=== PATIENT | male | born 1965 | race Caucasian/White ===

== ENCOUNTER 2018-12-19 13:34 | Emergency (ER) | payer OTHER ==
[2018-12-19 13:39] VITALS: BP 139/71; PULSE 60; TEMP 97.9; BMI 28.7
[2018-12-19] MEDS ORDERED: SODIUM CHLORIDE 1,000 ML IV STA (13:49)
[2018-12-19] MEDS ORDERED: morphine CARPU-JECT 4 MG/1 ML DISP.SYRIN IVPUSH ONE (13:49)
[2018-12-19] MEDS ORDERED: morphine SULFATE 4 MG/ML VIAL ONE (13:51)
--- NOTE | 2018-12-19 13:53 | PDOC ---
Attending Attestation - Resident Resident Name: Tima Perez - ED Attending Attestation I have performed the following: I have examined & evaluated the patient, The case was reviewed & discussed with the resident, I agree w/resident's findings & plan, Exceptions are as noted - HPI HPI: 12/19/18 13:50 53y M hx of brendan maria, chronic back pain was brought to the ED by PMD for evaluation of with R sided back pain. Pt states he was in his usual state of haelth this weekend. He went to his routine chiropractic appointment, approx 10 min later when he was driving home he noticed sudden onset of R flank pain that radiated down to the groin. He endorses mild nausea, denies any associated fever /chills, vomiting, cp, sob, associated numbness/tingling/weakness. He went home and laid in bed, and the pain gave him a sensation ilke needing to urinate, hwoever he was unable to urinate. Denies associated diarrhea, bpr, melena, dysuria, hematuria (hasnt urinated since onset of pain) Pt notse he had passed a kidney stone a long time ago, but there was no significant pain associated with it. - Physicial Exam PE: 12/19/18 14:20 GENERAL: The patient is awake, alert, and fully oriented, Nontoxic - in no acute distress. HEAD: Normocephalic, atraumatic. EYES: extraocular movements intact, sclera anicteric, conjunctiva clear. ENT: Normal voice, Moist mucous membranes. NECK: Normal range of motion, supple LUNGS: Breath sounds equal, clear to auscultation bilaterally. No wheezes, no rhonchi, no rales. HEART: Regular rate and rhythm, normal S1 and S2 without murmur, rub or gallop. ABDOMEN: Soft, nontender, normoactive bowel sounds. No guarding, no rebound. . No CVA tenderness EXTREMITIES: Normal range of motion, no edema. NEUROLOGICAL: No facial assymetry, Normal speech, moving all 4 ext spontneously and symemtrically, sensation intact and symmetric througout, dorsalis pedis pulses symmetric in b/l LE PSYCH: Normal mood, normal affect. SKIN: Warm, Dry, normal turgor, - Medical Decision Making 04/01/19 14:20 ddx large - includes possible kidney stones, consider appendicitis, msk cause, also consider possible vascular cuase will ck ct abdomen ua, labs orphine for pain fluids ekg to screen for acs Heart Score/ECG Review - ECG Impressions Comment:: 12/19/18 14:24 Twelve-lead EKG was performed and reviewed by me. There is normal sinus rhythm with a normal rate. rate of 65 The axis is normal. The intervals are normal. There is normal R wave progression There are no ST or T wave abnormalities. Impression: Normal twelve-lead EKG
--- NOTE | 2018-12-19 14:04 | PDOC ---
History of Present Illness - General Chief Complaint: Back Pain Stated Complaint: BACK PAIN Time Seen by Provider: 12/19/18 13:44 History Source: Patient Exam Limitations: No Limitations - History of Present Illness Initial Comments: 12/19/18 13:59 Patient is a 53M with history of kidney stones and chronic back pain coming in today complaining of R sided flank pain that onset acutely this morning. Patient reports that he was treated by a chiropractor, felt fine, then 10 minutes after leavinging had increased pain on this right side. Endorses associated dysuria. The pain radiates to his right groin. Denies fevers, nausea , vomiting, endorses chills. Took tramadol with no relief. Past History - Past Medical History Allergies/Adverse Reactions: Allergies Allergy/AdvReac Type Severity Reaction Status Date / Time No Known Allergies Allergy Verified 12/19/18 13:34 Home Medications: Ambulatory Orders Tramadol HCl 50 mg PO ONCE 12/19/18 COPD: No Hypercholesterolemia: Yes - Suicide/Smoking/Psychosocial Hx Smoking History: Never smoked Have you smoked in the past 12 months: No Information on smoking cessation initiated: No Hx Alcohol Use: No Review of Systems - Review of Systems Able to Perform ROS?: Yes Comments:: 12/19/18 14:03 GENERAL/CONSTITUTIONAL: No fever or chills. No weakness. HEAD, EYES, EARS, NOSE AND THROAT: No change in vision. No sore throat. CARDIOVASCULAR: No chest pain or shortness of breath RESPIRATORY: No cough, wheezing, or hemoptysis. GASTROINTESTINAL: No nausea, vomiting, diarrhea or constipation. GENITOURINARY: +dysuria, no frequency MUSCULOSKELETAL: No joint or muscle swelling or pain. No neck +back pain. SKIN: No rash NEUROLOGIC: No headache, vertigo, loss of consciousness, or change in strength/ sensation. ENDOCRINE: No increased thirst. No abnormal weight change HEMATOLOGIC/LYMPHATIC: No anemia, easy bleeding, or history of blood clots. ALLERGIC/IMMUNOLOGIC: No hives or skin allergy. *Physical Exam - Vital Signs Last Vital Signs Temp Pulse Resp BP Pulse Ox 97.9 F 60 18 139/71 98 12/19/18 13:34 12/19/18 13:34 12/19/18 13:34 12/19/18 13:34 12/19/18 13:34 - Physical Exam Comments: 12/19/18 14:04 GENERAL: Awake, alert, and fully oriented, diaphoretic, laying still. HEAD: No signs of trauma, normocephalic, atraumatic EYES: PERRLA, EOMI, sclera anicteric, conjunctiva clear ENT: Auricles normal inspection, hearing grossly normal, nares patent, oropharynx clear without exudates. Moist mucosa NECK: Normal ROM, supple, no lymphadenopathy, JVD, or masses LUNGS: No distress, speaks full sentences, clear to auscultation bilaterally HEART: Regular rate and rhythm, normal S1 and S2, no murmurs, rubs or gallops, peripheral pulses normal and equal bilaterally. ABDOMEN: Soft, tender in RLQ, +rebound, no guarding : Normal external genitalia, nontender testicles in normal lie, no hernia EXTREMITIES: Normal inspection, Normal range of motion, no edema. No clubbing or cyanosis. Femoral pulses equal bilaterally NEUROLOGICAL: Cranial nerves II through XII grossly intact. Normal speech, no focal sensorimotor deficits SKIN: Warm, Dry, normal turgor, no rashes or lesions noted. 12/19/18 14:06 ED Treatment Course - LABORATORY CBC & Chemistry Diagram: 12/19/18 13:55 12/19/18 13:55 - Medications Given in the ED: ED Medications Discontinued Medications Generic Name Dose Route Start Last Admin Trade Name Deisy PRN Reason Stop Dose Admin Morphine Sulfate 4 mg 12/19/18 13:49 12/19/18 13:55 Morphine Injection - IVPUSH 12/19/18 13:50 4 mg ONCE ONE Administration Medical Decision Making - Medical Decision Making 12/19/18 14:05 Patient is 53M with history of back pain and kidney stones here today with right sided back pain to abdominal pain. Vitals normal and stable. DDx includes , but is not limited to: kidney stone, appendicitis, UTI. 12/19/18 15:14 CBC shows small leukocytosis CMP reassuring. EKG shows NSR. No st elevations/depressions. Normal axis. Normal intervals. No significant t wave abnormalities. UA shows ketones, blood. No signs of infection. CT perfomed, read pending. 12/19/18 15:50 CT read shows evidence of recently passed stone. Will discharge with urology follow up. *DC/Admit/Observation/Transfer Diagnosis at time of Disposition: Kidney stone on right side - Discharge Dispostion Disposition: HOME Condition at time of disposition: Good Decision to Admit order: No - Referrals Referrals: Sam Blas MD [Staff Physician] - - Patient Instructions Printed Discharge Instructions: DI for Kidney Stones Additional Instructions: Please follow up with the urologist below in the next week. Please return if you have any new, worsening or concerning symptoms, especially increasing pain, fever, and inability to urinate. - Post Discharge Activity
[2018-12-19 14:12] LABS: BASO % 0.8 % (0-2.0); RDW 12.3 % (11.9-15.9)
[2018-12-19 14:17] LABS: EOS % 0.7 % (0-4.5); HEMATOCRIT 48.2 % (35.4-49); HEMOGLOBIN 16.3 GM/dl (11.7-16.9); LYMPH % 17.2 % (8-40); MCH 29.2 pg (25.7-33.7); MCHC 33.9 g/dl (32.0-35.9); MEAN CELL VOLUME 86.2 fl (80-96); MEAN PLT VOLUME 8.8 fl (7.5-11.1); MONO % 5.7 % (3.8-10.2); NEUT % 75.6 % (42.8-82.8); PLATELET COUNT 216 K/MM3 (134-434); RBC 5.59 M/mm3 (4.00-5.60); WHITE BLOOD COUNT 12.9 K/mm3 (4.0-10.8)
[2018-12-19 14:19] LABS: ALBUMIN 4.5 g/dl (3.4-5.0); ALK PHOS 63 U/L (45-117); ANION GAP 10 MMOL/L (8-16); BILIRUBIN,TOTAL 0.8 mg/dl (0.2-1); BLOOD UREA NITROGEN 13 mg/dl (7-18); CALCIUM 9.4 mg/dl (8.5-10); CHLORIDE 102 mmol/L (98-107); CO2 22 mmol/L (21-32); CREATININE 0.7 mg/dl (0.55-1.3); GLUCOSE,RANDOM 156 mg/dl (74-106); SGOT/AST 30 U/L (15-37); SGPT/ALT 31 U/L (13-61); SODIUM 134 mmol/L (136-145); TOT PROT 7.3 g/dl (6.4-8.2)
[2018-12-19 15:22] LABS: EPITHELIAL CELLS FEW /hpf; URINE HYALINE CAST 0-1 /lpf; URINE MUCUS 1+
[2018-12-19 16:29] LABS: LIPASE 91 U/L (73-393)
--- NOTE | 2018-12-20 14:45 | EKG ---
Test Reason : Blood Pressure : / mmHG Vent. Rate : 065 BPM Atrial Rate : 065 BPM P-R Int : 170 ms QRS Dur : 108 ms QT Int : 406 ms P-R-T Axes : 078 016 009 degrees QTc Int : 422 ms NORMAL SINUS RHYTHM NORMAL ECG NO PREVIOUS ECGS AVAILABLE Confirmed by Amos Fraser ([id number]) on 12/20/2018 2:45:19 PM Referred By: CIRA GONZALEZ Confirmed By:Amos Fraser
== END 2018-12-19 16:05 | disposition home or self-care (01) ==
LOC: FER 13:34
PROC: 3E033NZ Introduction of Analgesics, Hypnotics, Sedatives into Peripheral Vein, Percutaneous Approach (ICD-10-PCS; principal; 2018-12-19)
PROC: 3E0337Z Introduction of Electrolytic and Water Balance Substance into Peripheral Vein, Percutaneous Approach (ICD-10-PCS; 2018-12-19)
DX: N20.0 Calculus of kidney (principal); E78.00 Pure hypercholesterolemia, unspecified
CPT/HCPCS: 36415; 74177-TC; 80053; 81003; 81015; 83690; 85025; 87086; 93005; 99284-25; J7030

== ENCOUNTER 2022-10-26 04:17 | Day surgery (SDC) | payer OTHER ==
[2022-10-21 11:31] VITALS: BMI 29.5
[2022-10-26 09:37] VITALS: RESP 18
[2022-10-26] MEDS ORDERED: MIDAZOLAM HCL 2 MG/2 ML SINGLE DOSE VIAL ONE (12:12)
[2022-10-26 15:26] VITALS: BP 124/76; PULSE 78; TEMP 98.2
== END 2022-10-26 14:13 | disposition home or self-care (01) ==
LOC: JASU-SURG 04:17
PROVIDERS: ATTEND Urology
PROC: 0TF3XZZ Fragmentation in Right Kidney Pelvis, External Approach (ICD-10-PCS; principal; 2022-10-26 11:00)
DX: N20.0 Calculus of kidney (principal)

== ENCOUNTER 2022-10-30 12:12 | Emergency (ER) | payer OTHER ==
[2022-10-30 12:18] VITALS: BMI 30.4
[2022-10-30 15:45] LABS: PH,URINE 5.5 (5.0-8.0); URINE APPEARANCE CLEAR; URINE BILIRUBIN NEGATIVE (NEGATIVE); URINE COLOR YELLOW; URINE GLUCOSE (UA) NEGATIVE (NEGATIVE); URINE KETONE TRACE (NEGATIVE); URINE LEUK ESTERASE NEGATIVE (NEGATIVE); URINE NITRITE NEGATIVE (NEGATIVE); URINE PROTEIN TRACE (NEGATIVE); URINE UROBILINOGEN 0.2 mg/dL (0.2-1.0)
[2022-10-30 16:06] VITALS: RESP 17
[2022-10-30 17:01] LABS: BASO % 0.7 % (0-2.0); EOS % 1.6 % (0-4.5); HEMATOCRIT 45.8 % (35.4-49); HEMOGLOBIN 15.7 GM/dL (11.7-16.9); LYMPH % 15.6 % (8-40); MCH 29.4 pg (25.7-33.7); MCHC 34.3 g/dl (32.0-35.9); MEAN CELL VOLUME 85.6 fl (80-96); MEAN PLT VOLUME 8.3 fl (7.5-11.1); NEUT % 74.1 % (42.8-82.8); PLATELET COUNT 179 10^3/uL (134-434); RBC 5.35 M/mm3 (4.00-5.60); RDW 12.9 % (11.9-15.9); WHITE BLOOD COUNT 10.9 K/mm3 (4.0-10.0)
[2022-10-30 17:08] LABS: INR 1.03 (0.83-1.09); PROTHROMBIN TIME (PATIENT) 11.9 SEC (9.7-13.0)
[2022-10-30 17:29] LABS: CALCIUM 9.1 mg/dL (8.5-10.1)
[2022-10-30 17:30] LABS: ALBUMIN 3.8 g/dl (3.4-5.0); BLOOD UREA NITROGEN 14.1 mg/dL (7-18)
[2022-10-30 17:32] LABS: CREATININE 0.9 mg/dL (0.55-1.3)
[2022-10-30 17:33] LABS: BILIRUBIN,TOTAL 0.5 mg/dL (0.2-1)
[2022-10-30 17:34] LABS: TOT PROT 6.6 g/dl (6.4-8.2)
[2022-10-30 18:07] VITALS: BP 145/85; PULSE 82; TEMP 98.7
== END 2022-10-30 18:08 | disposition home or self-care (01) ==
LOC: JER 12:12
DX: N20.0 Calculus of kidney (principal)
CPT/HCPCS: 36415; 74176-TC; 80053; 81003; 85025; 85610; 99284-25

== ENCOUNTER 2022-10-31 04:34 | Day surgery (SDC) | payer OTHER ==
[2022-10-31 04:44] VITALS: BMI 30.5
[2022-10-31] MEDS ORDERED: morphine CARPU-JECT 2 MG/1 ML DISP.SYRIN IM ONE (05:34)
[2022-10-31] MEDS ORDERED: ONDANSETRON 4 MG/2 ML VIAL IVPUSH PRN (07:16)
[2022-10-31] MEDS ORDERED: PROMETHAZINE HCL 25 MG/1 ML VIAL IVPB PRN (07:16)
[2022-10-31] MEDS ORDERED: PROPOFOL 20 ML ONE (07:29)
[2022-10-31] MEDS ORDERED: MIDAZOLAM HCL 2 MG/2 ML SINGLE DOSE VIAL ONE (07:29)
[2022-10-31] MEDS ORDERED: LACTATED RINGERS SOLUTION 1,000 ML IV SCH (07:30)
[2022-10-31] MEDS ORDERED: LIDOCAINE HCL/PF 2% SDV 5ML VIAL ONE (07:30)
[2022-10-31] MEDS ORDERED: GLYCOPYRROLATE 0.2 MG/1 ML VIAL ONE (07:30)
[2022-10-31 09:56] VITALS: RESP 18
[2022-10-31] MEDS ORDERED: oxyCODONE HCL 5 MG TABLET PO PRN ×2 (10:30)
[2022-10-31 13:53] VITALS: PULSE 85; TEMP 98.4
[2022-10-31 14:50] VITALS: BP 145/83
== END 2022-10-31 18:00 | disposition home or self-care (01) ==
LOC: JER 04:34 → JASUSAT 07:26 → NEWFOCUS 07:26 → J8W 10:34 → JASUSAT 18:00
PROVIDERS: ATTEND Urology
PROC: 0TF38ZZ Fragmentation in Right Kidney Pelvis, Via Natural or Artificial Opening Endoscopic (ICD-10-PCS; principal; 2022-10-31 07:30)
PROC: 0TF68ZZ Fragmentation in Right Ureter, Via Natural or Artificial Opening Endoscopic (ICD-10-PCS; 2022-10-31 07:30)
PROC: 0T7B8DZ Dilation of Bladder with Intraluminal Device, Via Natural or Artificial Opening Endoscopic (ICD-10-PCS; 2022-10-31 07:30)
PROC: BT1DYZZ Fluoroscopy of Right Kidney, Ureter and Bladder using Other Contrast (ICD-10-PCS; 2022-10-31 07:30)
DX: N13.2 Hydronephrosis with renal and ureteral calculous obstruction (principal)
CPT/HCPCS: 0241U-QW; 76000-TC-FY; 86850; 86900; 86901; 93005; 93010; 94760; 99285-25; C2617

== ENCOUNTER 2022-11-23 04:04 | Day surgery (SDC) | payer OTHER ==
[2022-11-20 16:36] VITALS: BMI 28.7
[2022-11-23] MEDS ORDERED: MIDAZOLAM HCL 2 MG/2 ML SINGLE DOSE VIAL ONE (10:02)
[2022-11-23] MEDS ORDERED: ONDANSETRON 4 MG/2 ML VIAL ONE (10:02)
[2022-11-23 10:59] VITALS: PULSE 72; RESP 20
[2022-11-23 12:53] VITALS: BP 121/69; TEMP 97.5
== END 2022-11-23 12:55 | disposition home or self-care (01) ==
LOC: JASU-SURG 04:04
PROVIDERS: ATTEND Urology
PROC: 0TF3XZZ Fragmentation in Right Kidney Pelvis, External Approach (ICD-10-PCS; principal; 2022-11-23 09:30)
DX: N20.0 Calculus of kidney (principal)

== ENCOUNTER 2022-12-21 04:37 | Day surgery (SDC) | payer OTHER ==
[2022-12-15 11:41] VITALS: BMI 29.2
[~2022-12-21 04:37] MED LIST: IOHEXOL 300 MG/ML INFUS..BTL IV ONE
[2022-12-21] MEDS ORDERED: ceFAZolin SODIUM 1 GM VIAL IVPB ONE (08:09)
[2022-12-21] MEDS ORDERED: GENTAMICIN SO4 80 MG/2 ML VIAL IVPB ONE (08:10)
[2022-12-21] MEDS ORDERED: IOHEXOL 300 MG/ML INFUS..BTL IV ONE ×2 (08:18)
[2022-12-21] MEDS ORDERED: oxyCODONE HCL 5 MG TABLET PO PRN (08:41)
[2022-12-21] MEDS ORDERED: ONDANSETRON 4 MG/2 ML VIAL IVPUSH PRN (08:41)
[2022-12-21] MEDS ORDERED: PROPOFOL 20 ML ONE (08:44)
[2022-12-21] MEDS ORDERED: LACTATED RINGERS SOLUTION 1,000 ML IV SCH (08:45)
[2022-12-21] MEDS ORDERED: SUCCINYLCHOLINE CHLORIDE 200 MG/10 ML SYRINGE ONE (08:45)
[2022-12-21] MEDS ORDERED: MIDAZOLAM HCL 2 MG/2 ML SINGLE DOSE VIAL ONE (08:45)
[2022-12-21 09:06] VITALS: RESP 18
[2022-12-21] MEDS ORDERED: DEXAMETHASONE SOD PHOSPHATE 4 MG/1 ML VIAL ONE (09:10)
[2022-12-21] MEDS ORDERED: GENTAMICIN SO4 80 MG/2 ML VIAL ONE ×2 (09:10)
[2022-12-21] MEDS ORDERED: ONDANSETRON 4 MG/2 ML VIAL ONE (09:10)
[2022-12-21] MEDS ORDERED: ceFAZolin SODIUM 1 GM VIAL ONE (09:10)
[2022-12-21 10:27] VITALS: BP 147/80; PULSE 72; TEMP 98.2
== END 2022-12-21 10:25 | disposition home or self-care (01) ==
LOC: JASU-SURG 04:37
PROVIDERS: ATTEND Urology
PROC: 0TF3XZZ Fragmentation in Right Kidney Pelvis, External Approach (ICD-10-PCS; principal; 2022-12-21 08:00)
DX: N20.0 Calculus of kidney (principal)
CPT/HCPCS: 76000-TC-FY; 82962; 88300-TC; 94760; C1758

== ENCOUNTER 2023-08-02 04:34 | Day surgery (SDC) | payer OTHER ==
[2023-07-30 11:12] VITALS: BMI 28.0
[2023-08-02 06:41] VITALS: RESP 20
[2023-08-02] MEDS ORDERED: MIDAZOLAM HCL 2 MG/2 ML SINGLE DOSE VIAL ONE (08:05)
[2023-08-02] MEDS ORDERED: ONDANSETRON 4 MG/2 ML VIAL ONE (08:05)
[2023-08-02] MEDS ORDERED: FENTANYL CITRATE/PF 50 MCG/ML VIAL ONE (08:05)
[2023-08-02 09:18] VITALS: TEMP 97.8
[2023-08-02 11:23] VITALS: BP 126/70; PULSE 75
== END 2023-08-02 10:00 | disposition home or self-care (01) ==
LOC: JASU-SURG 04:34
PROVIDERS: ATTEND Urology
PROC: 0TF4XZZ Fragmentation in Left Kidney Pelvis, External Approach (ICD-10-PCS; principal; 2023-08-02 08:30)
DX: N20.0 Calculus of kidney (principal)
CPT/HCPCS: 82962